=== PATIENT | male | born 1985 | race Two or more races ===

== ENCOUNTER → 2018-07-03 | Emergency (ER) | payer OTHER ==
[~2018-07-03] VITALS: Ht 182.9 cm; Wt 99.8 kg
== END | disposition home or self-care (01) ==
LOC: ER 22:27
DX: S61.411A Laceration without foreign body of right hand, initial encounter (principal); W45.8XXA Other foreign body or object entering through skin, initial encounter; Y93.89 Activity, other specified; Y92.89 Other specified places as the place of occurrence of the external cause; Y99.8 Other external cause status

== ENCOUNTER 2018-07-14 16:55 | Emergency (ER) | payer OTHER ==
[~2018-07-14] VITALS: Ht 180.3 cm; Wt 95.3 kg
[2018-07-14] MEDS ORDERED: ANTIBIOTICO (17:21)
== END 2018-07-14 18:40 | disposition home or self-care (01) ==
LOC: ER 16:55
DX: Z48.02 Encounter for removal of sutures (principal)